=== PATIENT | male | born 1975 | race Caucasian/White ===

== ENCOUNTER 2018-03-29 15:22 | Emergency (ER) | payer BC ==
--- NOTE | 2018-03-29 16:41 | UC ---
Ear Complaint HPI - HPI Summary HPI Summary: Pt c/o bilateral ear pain and swelling. Pt was treated for otitis media 2 weeks ago with augmentin and reports bilateral ear pain resolved. - History of Current Complaint Stated Complaint: TAVARES EAR COMPLAINT Time Seen by Provider: 03/29/18 16:27 Hx Obtained From: Patient Onset/Duration: Gradual Onset, Lasting Weeks, Still Present Severity Initially: Mild Severity Currently: Mild Pain Intensity: 2 Alleviating Factors: Nothing Associated Signs/Symptoms: Positive: Discharge, Swelling @ Related History: Seasonal Allergies - Allergies/Home Medications Allergies/Adverse Reactions: Allergies Allergy/AdvReac Type Severity Reaction Status Date / Time cefaclor [From Ceclor] Allergy Hives/Diff. Verified 03/29/18 16:25 Breathing/I tching niacin Allergy Hives/Diff. Verified 03/29/18 16:25 [From Niaspan Breathing/I Extended-Release] tching Home Medications: Home Medications Lisinopril TAB* [Prinivil TAB 10 MG*] 10 mg PO DAILY 03/29/18 [History Confirmed 03/29/18] Simvastatin 20 mg PO BEDTIME 03/29/18 [History Confirmed 03/29/18] diphenhydrAMINE HCl [Benadryl Allergy 25 MG CAP] 25 mg PO Q6H PRN 03/29/18 [ History Confirmed 03/29/18] PMH/Surg Hx/FS Hx/Imm Hx Previously Healthy: Yes - Surgical History Surgical History: Yes Surgery Procedure, Year, and Place: 2001--testicular cancer. 2008--appy - Family History Known Family History: Positive: Cardiac Disease - Social History Occupation: Employed Full-time Lives: With Family Alcohol Use: Occasionally Substance Use Type: None Smoking Status (MU): Never Smoked Tobacco Have You Smoked in the Last Year: No Review of Systems Constitutional: Negative Skin: Bruising Eyes: Negative ENT: Ear Ache Respiratory: Negative Cardiovascular: Negative Gastrointestinal: Negative Genitourinary: Negative Motor: Negative Neurovascular: Negative Musculoskeletal: Negative Neurological: Negative Psychological: Negative Is Patient Immunocompromised?: No All Other Systems Reviewed And Are Negative: Yes Physical Exam Triage Information Reviewed: Yes Appearance: Well-Appearing, Pain Distress Vital Signs: Initial Vital Signs Temp 98.1 F 03/29/18 16:26 Pulse 75 03/29/18 16:26 Resp 12 03/29/18 16:26 BP 128/77 03/29/18 16:26 Pulse Ox 98 03/29/18 16:26 Vital Signs Reviewed: Yes Eye Exam: Normal ENT Exam: Normal ENT: Positive: Other - bialteral ear canals erythematous and mild swelling Dental Exam: Normal Neck exam: Normal Respiratory Exam: Normal Respiratory: Positive: No respiratory distress Musculoskeletal Exam: Normal Neurological Exam: Normal Psychological Exam: Normal Skin Exam: Normal Ear Complaint Course/Dx - Differential Dx/Diagnosis Differential Diagnosis/HQI/PQRI: Otitis Externa, Otitis Media, URI Provider Diagnoses: bilateral otitis externa Discharge - Sign-Out/Discharge Documenting (check all that apply): Discharge/Admit/Transfer - Discharge Plan Condition: Stable Disposition: HOME Prescriptions: Ciprofloxacin/Hydrocortisone [Cipro Hc] 2 drop OT Q8H #1 bottle Patient Education Materials: Otitis Externa (ED) Referrals: [facility] [place] [facility] [Outside] No Primary Care Phys,NOPCP [Primary Care Provider] - - Billing Disposition and Condition Condition: STABLE Disposition: Home
--- NOTE | 2018-03-29 21:01 | ED ---
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 Cortisporin otic suspension ordered. Discharge - Sign-Out/Discharge Documenting (check all that apply): Discharge/Admit/Transfer - Discharge Plan Condition: Stable Disposition: HOME Prescriptions: Ciprofloxacin/Hydrocortisone [Cipro Hc] 2 drop OT Q8H #1 bottle Neomyc/Polym/HC 1% OTIC SUSP* [Cortisporin Otic Susp 1%*] 4 drop BOTH EARS TID # 1 btl Patient Education Materials: Otitis Externa (ED) Referrals: [facility] [Outside] No Primary Care Phys,NOPCP [Primary Care Provider] - - Billing Disposition and Condition Condition: STABLE Disposition: Home
== END 2018-03-29 16:50 | disposition home or self-care (01) ==
LOC: UCCORT 15:22
DX: H60.93 Unspecified otitis externa, bilateral (principal); Z88.1 Allergy status to other antibiotic agents; Z88.8 Allergy status to other drugs, medicaments and biological substances
CPT/HCPCS: 99202; G0463